=== PATIENT | female | born 1990 | race Caucasian/White ===

== ENCOUNTER 2016-06-17 07:47 | Inpatient (IN) | payer MEDICAID ==
[2016-06-17 07:50] VITALS: BMI 20.7
--- NOTE | 2016-06-17 08:00 | ED PDOC ---
HPI: Psych/Substance Abuse Time Seen by Provider: 06/17/16 07:50 History Per: Patient History/Exam Limitations: no limitations Onset/Duration Of Symptoms: Mins (prior to arrival ) Associated Symptoms: Suicidal Thoughts, Other (homicidal ideation ). denies: Suicidal Plan Additional Complaint(s): Elaine Garcia is a 25 year old female, with a previous medical history of lupus, who presents to the ED via EMS secondary to kicking the door at home and expressing suicidal and homicidal ideation towards her boyfriend. with whom she has been having problems with. Patient denies any specific plan for suicide or homicide. PMD: none provided Past Medical History Reviewed: Historical Data, Nursing Documentation, Vital Signs Vital Signs: Last Vital Signs Temp 98 F 06/17/16 07:48 Pulse 76 06/17/16 07:48 Resp BP 132/67 06/17/16 07:48 Pulse Ox 100 06/17/16 07:48 - Medical History PMH: Anxiety (as per ems report), Bipolar Disorder, Depression, Post Traumatic Stress Disorder Denies: Diabetes, Hepatitis, HIV, HTN, Chronic Kidney Disease, Seizures, Sexually Transmitted Disease Other PMH: lupus - Family History Family History: States: Unknown Family Hx - Home Medications Home Medications: Ambulatory Orders Medication Instructions Recorded ARIPiprazole [Abilify] 5 mg PO DAILY #30 tab 04/15/16 - Allergies Allergies/Adverse Reactions: Allergies Allergy/AdvReac Type Severity Reaction Status Date / Time No Known Allergies Allergy Verified 05/17/15 15:29 Review of Systems ROS Statement: Except As Marked, All Systems Reviewed And Found Negative Psych: Positive for: Suicidal ideation, Other (homicidal ideation) Physical Exam - Reviewed Nursing Documentation Reviewed: Yes Vital Signs Reviewed: Yes - Physical Exam Appears: Positive for: Well Head Exam: Positive for: ATRAUMATIC, NORMAL INSPECTION, NORMOCEPHALIC Skin: Positive for: Normal Color, Warm, DRY Eye Exam: Positive for: EOMI, Normal appearance, PERRL ENT: Positive for: Normal ENT Inspection Cardiovascular/Chest: Positive for: Regular Rate, Rhythm Respiratory: Positive for: CNT, Normal Breath Sounds Gastrointestinal/Abdominal: Positive for: Normal Exam, Bowel Sounds, Soft Neurologic/Psych: Positive for: Alert, Oriented (x 3) - Laboratory Results Result Diagrams: 06/17/16 08:26 06/17/16 08:26 - ECG O2 Sat by Pulse Oximetry: 100 (RA) Pulse Ox Interpretation: Normal Medical Decision Making Medical Decision Making: Initial Impression: Suicidal Ideation Initial Plan: * alcohol serum * labs * urine drug screen * urine dipstick * urine * 1:1 observation * reevaluation Medically stable for psychiatric admission Scribe Attestation: Documented by Csasia Mayes, acting as a scribe for Richard Flores MD. Provider Scribe Attestation: All medical record entries made by the Scribe were at my direction and personally dictated by me. I have reviewed the chart and agree that the record accurately reflects my personal performance of the history, physical exam, medical decision making, and the department course for this patient. I have also personally directed, reviewed, and agree with the discharge instructions and disposition. Disposition - Clinical Impression Clinical Impression: Depression - Patient ED Disposition Is Patient to be Admitted: Yes - Disposition Disposition Time: 09:26 Condition: FAIR - Pt Status Changed To: Hospital Disposition Of: Inpatient - Admit Certification Admit to Inpatient:: After my assessment, the patient will require hospitalization for at least two midnights. This is because of the severity of symptoms shown, intensity of services needed, and/or the medical risk in this patient being treated as an outpatient. - POA Present On Arrival: None
[2016-06-17 08:38] LABS: BASO % 0.6 % (0.0-2.0); EOS # 0.1 K/uL (0.0-0.7); EOS % 0.9 % (0.0-4.0); HEMATOCRIT 39.3 % (34.0-47.0); LYMPH # 1.3 K/uL (1.0-4.3); LYMPH % 23.2 % (20.0-40.0); MEAN CELL VOLUME 85.3 fl (81.0-99.0); MEAN CORPUSCULAR HEMOGLOBIN 27.8 pg (27.0-31.0); MEAN CORPUSCULAR HGB CONC 32.6 g/dL (33.0-37.0); MEAN PLATELET VOLUME 12.9 fl (7.2-11.7); MONO # 0.4 K/uL (0.0-0.8); MONO % 7.9 % (0.0-10.0); NEUT # 3.7 K/uL (1.8-7.0); NEUT % 67.4 % (50.0-75.0); NRBC % 0.3 % (0.0-0.0); RED CELL DISTRIBUTION WIDTH 13.9 % (11.5-14.5); WHITE BLOOD COUNT 5.5 K/uL (4.8-10.8)
[2016-06-17 08:40] LABS: ALB/GLOB RATIO 1.5 (1.0-2.1); ALCOHOL SERUM < 10 mg/dl (0-10); ALKALINE PHOSPHATASE 58 U/L (38-126); ALT/SGPT 35 U/L (9-52); AST/SGOT 25 U/L (14-36); BILIRUBIN,TOTAL 0.2 mg/dl (0.2-1.3); BLOOD UREA NITROGEN 9 mg/dl (7-17); CALCIUM 9.1 mg/dL (8.4-10.2); CARBON DIOXIDE 23 mmol/L (22-30); CHLORIDE 108 mmol/L (98-107); GFR AFRICAN-AMERICAN > 60; GLUCOSE,RANDOM 85 mg/dL (65-105); POTASSIUM 4.3 MMOL/L (3.6-5.0); SODIUM 140 mmol/l (132-148); TOTAL PROTEIN 7.3 G/DL (6.3-8.2)
[2016-06-17] MEDS ORDERED: DiphenhydrAMINE 50 mg/ml Inj IM PRN (10:56)
[2016-06-17] MEDS ORDERED: Magnesium Hydroxide Susp 30 ml UD PO PRN (10:56)
[2016-06-17] MEDS ORDERED: Alum-Mag Hydrox-Simethicone Susp (30 mL) PO PRN (10:56)
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
--- NOTE | 2016-06-17 18:57 | CP.PCM.CON ---
History of Present Illness - History of Present Illness History of Present Illness: 25 yo female with history of SLE and Bipolar DO was admitted to psyche unit because of suicidal ideation and aggressive behaviour towards her BF. Review of Systems - Review of Systems All systems: reviewed and no additional remarkable complaints except (aside from those mentioned above, 12 point system review were negative by me) Past Patient History - Infectious Disease Hx of Infectious Diseases: None - Tetanus Immunizations Tetanus Immunization: Unknown - Past Medical History & Family History Past Medical History?: Yes Past Family History: Reviewed and not pertinent - Past Social History Smoking Status: smokes weeds Chewing Tobacco Use: No Cigar Use: No Drugs: Cannabis (smokes 1 stick of weed daily, last smoke was this morning) Home Situation {Lives}: Roommate (BF) - CARDIAC Hx Cardiac Disorders: No Hx Hypertension: No - PULMONARY Hx Respiratory Disorders: No - NEUROLOGICAL Hx Neurological Disorder: No Hx Seizures: No - HEENT Hx HEENT Problems: No - RENAL Hx Chronic Kidney Disease: No - ENDOCRINE/METABOLIC Hx Systemic Lupus Erythematosus: Yes - HEMATOLOGICAL/ONCOLOGICAL Hx Blood Disorders: Yes Hx Human Immunodeficiency Virus (HIV): No Other/Comment: thrombocytopenia - INTEGUMENTARY Hx Dermatological Problems: No - MUSCULOSKELETAL/RHEUMATOLOGICAL Hx Musculoskeletal Disorders: No - GASTROINTESTINAL Hx Gastrointestinal Disorders: No - GENITOURINARY/GYNECOLOGICAL Hx Genitourinary Disorders: No Hx Sexually Transmitted Disorders: No - PSYCHIATRIC Hx Bipolar Disorder: Yes Hx Depression: Yes Hx Substance Use: Yes - SURGICAL HISTORY Hx Surgeries: No - ANESTHESIA Hx Anesthesia: No Meds Allergies/Adverse Reactions: Allergies Allergy/AdvReac Type Severity Reaction Status Date / Time No Known Allergies Allergy Verified 05/17/15 15:29 - Medications Medications: Current Medications Acetaminophen (Tylenol 325mg Tab) 650 mg PO Q4 PRN PRN Reason: Pain, moderate (4-7) Al Hydrox/Mg Hydrox/Simethicone (Maalox Plus 30 Ml) 30 ml PO Q4 PRN PRN Reason: Dyspepsia Aripiprazole (Abilify) 5 mg PO DAILY GUS Last Admin: 06/17/16 11:26 Dose: 5 mg Diphenhydramine HCl (Benadryl) 50 mg IM Q6 PRN PRN Reason: Extrapyramidal S/S Unable PO Diphenhydramine HCl (Benadryl) 50 mg PO Q6 PRN PRN Reason: Extrapyramidal Symptoms Haloperidol (Haldol) 5 mg PO Q4 PRN PRN Reason: Agitation Haloperidol Lactate (Haldol) 5 mg IM Q4 PRN PRN Reason: Agitation, Unable to Take PO Lorazepam (Ativan) 2 mg IM Q4 PRN PRN Reason: Anxiety/Agitation,Unable PO Lorazepam (Ativan) 2 mg PO Q4 PRN PRN Reason: Anxiety/Agitation Magnesium Hydroxide (Milk Of Magnesia) 30 ml PO HS PRN PRN Reason: Constipation Physical Exam - Constitutional Appears: No Acute Distress - Head Exam Head Exam: ATRAUMATIC - Eye Exam Eye Exam: absent: Scleral icterus - ENT Exam ENT Exam: Mucous Membranes Moist - Neck Exam Neck exam: Negative for: Meningismus - Respiratory Exam Respiratory Exam: absent: Rhonchi, Wheezes, Respiratory Distress - Cardiovascular Exam Cardiovascular Exam: REGULAR RHYTHM, +S1, +S2 - GI/Abdominal Exam GI & Abdominal Exam: Soft. absent: Tenderness - Rectal Exam Rectal Exam: Deferred - Extremities Exam Extremities exam: Negative for: pedal edema - Neurological Exam Neurological exam: Alert, Oriented x3 - Psychiatric Exam Psychiatric exam: Normal Affect - Skin Skin Exam: Dry, Intact Results - Vital Signs Recent Vital Signs: Last Vital Signs Temp 97.7 F 06/17/16 16:47 Pulse 68 06/17/16 16:47 Resp 18 06/17/16 16:47 BP 108/61 06/17/16 16:47 Pulse Ox 100 06/17/16 10:11 - Labs Result Diagrams: 06/17/16 08:26 06/17/16 08:26 Assessment & Plan (1) Depression Status: Acute Comment: psyche is managing (2) SLE (systemic lupus erythematosus) Status: Acute (3) Idiopathic thrombocytopenia Status: Chronic Comment: no active bleeding or bruising
[2016-06-18 08:51] LABS: T4 8.06 ug/dl (5.5-11.0)
[2016-06-18 09:05] LABS: THYROID STIMULATING HORMONE 1.46 mIU/ML (0.46-4.68)
--- NOTE | 2016-06-18 10:01 | PCM.PYCHPN ---
Psychiatric Progress Note - Psychiatric Progress Note Patient seen today, length of contact: Patient evaluated, case discussed with staff, chart reviewed Patient Chief Complaint: "I'm so upset" Problems Identified/Issues Discussed: Patient was lying in bed under the covers, unwilling to get out of bed to engage in conversation with the real estate underwriter. She reports that she continues to feel depressed, but denied SI/HI. No acute psychotic symptoms or paranoia. She reports that she has been crying a lot and had a large pile of used tissues next to her bed. She was encouraged to get out of bed and engage with staff and peers. No adverse effects to Abilify reported. Medication Change: No Medical Record Reviewed: Yes Mental Status Examination - Cognitive Function Orientation: Person, Place, Situation, Time Memory: Intact Attention: WNL Concentration: WNL Association: WNL Fund of Knowledge: [facility] Decription of patient's judgement and insights: Fair I/J - Mood Mood: Depressed, Anxious - Affect Affect: Other (Tearful, labile) - Speech Speech: Soft - Formal Thought Process Formal Thought Process: No Impairment Psychotic Thoughts and Behaviors: No AH/VH/paranoia/delusions - Suicidal Ideation Suicidal Ideation: No - Homicidal Ideation Homicidal Ideation: No Goal/Treatment Plan - Goal/Treatment Plan Need for Continued Stay: Remain at risks for inpatient hospitalization, Severe depression anxiety Progress Toward Problem(s) and Goals/Treatment Plan: 25 yo female w/ h/o Bipolar II disorder and borderline personality disorder, continues to be labile and depressed, but denies current suicidal or homicidal ideation. Patient needs continued inpatient hospitalization for treatment and stabilization. -Continue Abilify 5 mg PO Daily -Medicine consult appreciated -No 1:1 needed as the patient can contract for safety -Individual and group therapy Estimated Date of D/C: 06/22/16
[2016-06-18 18:03] VITALS: RESP 18; O2SAT 99
--- NOTE | 2016-06-19 11:14 | PCM.PYCHPN ---
Psychiatric Progress Note - Psychiatric Progress Note Patient seen today, length of contact: Patient evaluated, case discussed with staff, chart reviewed Patient Chief Complaint: "I'm so upset" Problems Identified/Issues Discussed: Patient was out of bed, took a shower earlier, so she has improved hygiene. She was very tearful on interview, stating she wants to leave the hospital in order to break up with her boyfriend and move. She was informed that she can sign a 48 hour letter requesting discharge. She was not agreeable to increasing the Abilify at this time. No SI/HI. No acute psychotic symptoms or paranoia. Medication Change: No Medical Record Reviewed: Yes Mental Status Examination - Cognitive Function Orientation: Person, Place, Situation, Time Memory: Intact Attention: WNL Concentration: WNL Association: WNL Fund of Knowledge: [facility] Decription of patient's judgement and insights: Fair I/J - Mood Mood: Depressed, Anxious - Affect Affect: Other (Tearful, labile) - Speech Speech: Soft - Formal Thought Process Formal Thought Process: No Impairment Psychotic Thoughts and Behaviors: No AH/VH/paranoia/delusions - Suicidal Ideation Suicidal Ideation: No - Homicidal Ideation Homicidal Ideation: No Goal/Treatment Plan - Goal/Treatment Plan Need for Continued Stay: Remain at risks for inpatient hospitalization, Severe depression anxiety Progress Toward Problem(s) and Goals/Treatment Plan: 25 yo female w/ h/o Bipolar II disorder and borderline personality disorder, continues to be labile and tearful, but denies current suicidal or homicidal ideation. -Continue Abilify 5 mg PO Daily -Medicine consult appreciated -No 1:1 needed as the patient can contract for safety -Individual and group therapy Estimated Date of D/C: 06/22/16
[2016-06-20 09:36] VITALS: BP 120/75; PULSE 82; TEMP 96
--- NOTE | 2016-06-20 12:21 | PCM.PYCHDC ---
Mental Status Examination - Mental Status Examination Orientation: Person, Place, Situation, Time Memory: Intact Mood: Neutral Affect: Broad Speech: Appropriate Attention: WNL Concentration: WNL Association: WNL Fund of Knowledge: WNL Formal Thought Process: No Impairment Description of patient's judgement and insight: good insight and judgment Psychotic Thoughts and Behaviors: denies any a/v hallucinations Suicidal Ideation: No Current Homicidal Ideation?: No Plan: pt denies any suicidal or homicidal thoughts/plans Discharge Summary - Discharge Note Reason for Hospitalization: pt was anxious, stating she had suicidal thoughts Psychiatric History (includes Medical, Family, Personal Hx): history of borderline personality disorder, prior hospitalizations Laboratory Data: Abnormal Lab Results 06/18/16 06:00 Hemoglobin A1c 5.0 Consultations:: List each consultation separately and include: 1. Reason for request. 2. Findings. 3. Follow-up Consultations: seen by the hospitalist Summary of Hospital Course include:: 1. Description of specific treatment plan utilized for patients during their course of treatmen. 2. Summarize the time- course for resolution of acute symptoms and/or regressed behaviors. 3. Describe issues identified and worked on during hospitalization. 4. Describe medication utilized. 5. Describe medical problems identified and treated. 6. Reassessment of suicide risk Summary of Hospital Course: pt was admitted to [facility] and oriented to the unit. pt placed on routine safety protocols. pt started on her previous medicaiton- abilify. she participated in treatment. she reported she was no longer having suicidal thoughts. she was agreeing to follow up with aftercare at the mental health clinic. at time of discharge she was goal directed and future oriented. - Final Diagnosis (DSM 5) Condition upon Discharge: FAIR DSM 5: mood disorder unspecified, borderline personality disorder Disposition: HOME/ ROUTINE Prescriptions/Medication Reconciliation: ARIPiprazole [Abilify] 5 mg PO DAILY #30 tab - Smoking Cessation Smoking Cessation Medication prescribed: No Reason for not providing: declines - Antipsychotic Medications Pt discharged on 2 or more routine antipsychotic medications: Yes
== END 2016-06-20 17:35 | disposition home or self-care (01) | DRG 430 ==
LOC: H.ER 07:47 → SUPCPDRO 07:47 → H.ERHOLD 09:27 → H.PSYCH 10:36
PROVIDERS: ADMIT Psychiatry & Neurology Psychiatry; ATTEND Psychiatry & Neurology Psychiatry
PROC: GZHZZZZ Group Psychotherapy (ICD-10-PCS; principal; 2016-06-17)
PROC: GZ58ZZZ Individual Psychotherapy, Cognitive-Behavioral (ICD-10-PCS; 2016-06-17)
DX: F31.81 Bipolar II disorder (principal); D69.3 Immune thrombocytopenic purpura; M32.9 Systemic lupus erythematosus, unspecified; R45.851 Suicidal ideations; Z91.19 Patient's noncompliance with other medical treatment and regimen; F60.3 Borderline personality disorder; F43.10 Post-traumatic stress disorder, unspecified; F12.90 Cannabis use, unspecified, uncomplicated; Z91.410 Personal history of adult physical and sexual abuse; Z81.8 Family history of other mental and behavioral disorders

== ENCOUNTER 2016-07-20 10:06 | Emergency (ER) | payer MEDICAID ==
[2016-07-20 10:06] VITALS: BMI 20.7
[2016-07-20 10:09] VITALS: BP 119/72; PULSE 70; RESP 18; TEMP 98.5; O2SAT 100
--- NOTE | 2016-07-20 11:04 | ED PDOC ---
HPI: Psych/Substance Abuse Time Seen by Provider: 07/20/16 10:15 Chief Complaint (Nursing): Psychiatric Evaluation Chief Complaint (Provider): Psychiatric Evaluation History Per: Patient, EMS Modifying Factor(s): None Additional Complaint(s): Lexis Garcia is a 25 year old female with a history of bipolar disorder, schizoaffective disorder, and lupus that was brought to the ED via EMS after the patient's friend called for concern re patients safety. Patient reports that she was feeling sad, and has multiple superficial left forearm cuts, which were done with a needle. She currently denies any SI/HI and states feels better. Past Medical History Reviewed: Historical Data, Nursing Documentation, Vital Signs Vital Signs: Last Vital Signs Temp 98.5 F 07/20/16 10:08 Pulse 70 07/20/16 10:08 Resp 18 07/20/16 10:08 BP 119/72 07/20/16 10:08 Pulse Ox 100 07/20/16 10:08 - Medical History PMH: Anxiety (as per ems report), Bipolar Disorder, Depression, Post Traumatic Stress Disorder, Schizophrenia Denies: Diabetes, Hepatitis, HIV, HTN, Chronic Kidney Disease, Seizures, Sexually Transmitted Disease Other PMH: Lupus - Surgical History Surgical History: No Surg Hx - Family History Family History: States: Unknown Family Hx - Social History Current smoker - smoking cessation education provided: No Alcohol: None Drugs: Denies - Home Medications Home Medications: Ambulatory Orders Medication Instructions Recorded ARIPiprazole [Abilify] 5 mg PO DAILY #30 tab 06/20/16 - Allergies Allergies/Adverse Reactions: Allergies Allergy/AdvReac Type Severity Reaction Status Date / Time No Known Allergies Allergy Verified 07/20/16 10:31 Review of Systems Musculoskeletal: Positive for: Arm Pain (multiple superficial cuts on left forearm) Psych: Negative for: Suicidal ideation (no current SI/HI) Physical Exam - Reviewed Nursing Documentation Reviewed: Yes Vital Signs Reviewed: Yes - Physical Exam Appears: Positive for: Non-toxic, No Acute Distress Head Exam: Positive for: ATRAUMATIC, NORMOCEPHALIC Skin: Positive for: Normal Color, Warm Cardiovascular/Chest: Positive for: Regular Rate, Rhythm. Negative for: Murmur Respiratory: Positive for: Normal Breath Sounds. Negative for: Wheezing Gastrointestinal/Abdominal: Positive for: Normal Exam Extremity: Positive for: Other (Abrasions on left forearm no active bleeding or noted cellulitis. neurovascular intact) Neurologic/Psych: Positive for: Alert, Oriented. Negative for: Motor/Sensory Deficits - Laboratory Results Result Diagrams: 07/20/16 11:10 07/20/16 11:10 - ECG O2 Sat by Pulse Oximetry: 100 (RA) Pulse Ox Interpretation: Normal Medical Decision Making Medical Decision Making: Impression: Psychiatric Evaluation Plan: * CMP * CBC * Acetaminophen * Alcohol * Salicylate * Urinalysis * Urine Drug Screen * Crisis Evaluation * Reevaluation 13:48 Patient is medically cleared for discharge after being seen by health worker, plan as per psychiatrist Dr. Mullen. Arranged outpt f/u at clinic. gave pt appt. Clinical Impression: Bipolar Disorder Scribe Attestation: Documented by Shreya Zhao, acting as a scribe for Shruti Mcclain MD. Provider Scribe Attestation: All medical record entries made by the Scribe were at my direction and personally dictated by me. I have reviewed the chart and agree that the record accurately reflects my personal performance of the history, physical exam, medical decision making, and the department course for this patient. I have also personally directed, reviewed, and agree with the discharge instructions and disposition. Disposition - Clinical Impression Clinical Impression: Bipolar disorder - Patient ED Disposition Is Patient to be Admitted: No Counseled Patient/Family Regarding: Diagnosis, Need For Followup - Disposition Disposition: Routine/Home Disposition Time: 12:40 Condition: STABLE Additional Instructions: follow up in mental health clinic as instructed return to the ED with any worsening or concerning symptoms. Instructions: Bipolar Disorder (ED)
[2016-07-20 11:18] LABS: BASO % 0.5 % (0.0-2.0); EOS % 0.7 % (0.0-4.0); HEMATOCRIT 42.6 % (34.0-47.0); LYMPH # 1.2 K/uL (1.0-4.3); LYMPH % 22.7 % (20.0-40.0); MEAN CELL VOLUME 84.3 fl (81.0-99.0); MEAN CORPUSCULAR HGB CONC 32.1 g/dL (33.0-37.0); MEAN PLATELET VOLUME 11.8 fl (7.2-11.7); MONO # 0.4 K/uL (0.0-0.8); MONO % 7.2 % (0.0-10.0); NEUT # 3.8 K/uL (1.8-7.0); NEUT % 68.9 % (50.0-75.0); NRBC % 0.1 % (0.0-0.0); RED CELL DISTRIBUTION WIDTH 13.8 % (11.5-14.5); WHITE BLOOD COUNT 5.5 K/uL (4.8-10.8)
[2016-07-20 11:22] LABS: URINE BACTERIA RARE (<OCC); URINE BILIRUBIN NEGATIVE (NEGATIVE); URINE BLOOD NEGATIVE (NEGATIVE); URINE COLOR YELLOW (YELLOW); URINE GLUCOSE (UA) NEG (Normal); URINE KETONE NEGATIVE (NEGATIVE); URINE LEUKOCYTE ESTERASE NEG Leu/uL (Negative); URINE PROTEIN NEGATIVE (NEGATIVE); URINE UROBILINOGEN 0.2-1.0 mg/dL (0.2-1.0); WBC URINE 1 /hpf (0-5)
[2016-07-20 11:23] LABS: RBC URINE 3 /hpf (0-3)
[2016-07-20 11:29] LABS: ALB/GLOB RATIO 1.3 (1.0-2.1); ALCOHOL SERUM < 10 mg/dl (0-10); ALKALINE PHOSPHATASE 59 U/L (38-126); ALT/SGPT 26 U/L (9-52); AST/SGOT 19 U/L (14-36); BILIRUBIN,TOTAL 0.4 mg/dl (0.2-1.3); BLOOD UREA NITROGEN 10 mg/dl (7-17); CALCIUM 9.1 mg/dL (8.4-10.2); CARBON DIOXIDE 23 mmol/L (22-30); CHLORIDE 108 mmol/L (98-107); GFR AFRICAN-AMERICAN > 60; GLUCOSE,RANDOM 75 mg/dL (65-105); POTASSIUM 3.9 MMOL/L (3.6-5.0); SODIUM 142 mmol/l (132-148); TOTAL PROTEIN 8.2 G/DL (6.3-8.2)
== END 2016-07-20 14:34 | disposition home or self-care (01) ==
LOC: H.ER 10:06
DX: F31.9 Bipolar disorder, unspecified (principal); M32.9 Systemic lupus erythematosus, unspecified; F20.9 Schizophrenia, unspecified

== ENCOUNTER 2018-03-11 14:55 | Emergency (ER) | payer MEDICARE, MEDICAID ==
[2018-03-11 14:55] VITALS: BMI 20.7
[2018-03-11 15:03] VITALS: RESP 18
--- NOTE | 2018-03-11 15:44 | ED PDOC ---
HPI: Psych/Substance Abuse Time Seen by Provider: 03/11/18 15:07 Chief Complaint (Nursing): Psychiatric Evaluation Chief Complaint (Provider): Psychiatric Evalaution History Per: Patient, EMS, Other (police) History/Exam Limitations: no limitations Suicide/Self Injury Attempted (Context): None Severity: Moderate Associated Symptoms: Suicidal Thoughts Additional Complaint(s): 27 year old female with a past medical history of lupus, anxiety, depression, borderline personality disorder, and scizoeffective disorder is brought into the ED by police for a psychiatric evaluation. Police were called by patient's coworkers as they were concerned about an update she posted to her facebook where she stated that she was suicidal and was taking pills. Patient admits to posting the update, as it helps her cope, and taking 2.0 mg of ativan today. Patient was prescribed 5x doses of 0.5 mg ativan by [facility] after her most recent admission for 5x days last month for schizoeffective disorder after experiencing a panic attack due to concern of her family at home in [place]. Patient states that she is has had 1-2x psychiatric admissions to hospitals annually for the past 9x years. As per police and EMS patient stated she would commit suicide when she was discharged form the ED. Patient states that the trauma of getting her blood drawn "forcibly" (as from previous hospital admissions) and being overmedicated would make her want to commit suicide if she was discharged. Patient denies taking any medications due to insurance issues, but states that she has a prescription for abilify. PMD: None provided. Past Medical History Reviewed: Historical Data, Nursing Documentation, Vital Signs Vital Signs: Last Vital Signs Temp 98.5 F 03/11/18 14:58 Pulse 88 03/11/18 14:58 Resp 18 03/11/18 14:58 BP 138/70 03/11/18 14:58 Pulse Ox 99 03/11/18 14:58 LILLIAN Report Viewed: Yes - Medical History PMH: Anxiety (as per ems report), Bipolar Disorder, Depression, Post Traumatic Stress Disorder, Schizophrenia Denies: Diabetes, Hepatitis, HIV, HTN, Chronic Kidney Disease, Seizures, Sexually Transmitted Disease Other PMH: lupus - Family History Family History: States: No Known Family Hx - Social History Drugs: Cannabis, Prescription medications (ativan 2 mg today) - Immunization History Hx Tetanus Toxoid Vaccination: No Hx Influenza Vaccination: No Hx Pneumococcal Vaccination: No - Home Medications Home Medications: Ambulatory Orders Medication Instructions Recorded ARIPiprazole [Abilify] 5 mg PO DAILY #30 tab 06/20/16 Buspirone HCl 15 mg PO 05/07/17 QUEtiapine [SEROquel] 50 mg PO 05/07/17 ARIPiprazole [Abilify] 5 mg PO HS #30 tab 05/11/17 QUEtiapine [SEROquel] 50 mg PO HS #30 tab 05/11/17 - Allergies Allergies/Adverse Reactions: Allergies Allergy/AdvReac Type Severity Reaction Status Date / Time No Known Allergies Allergy Verified 03/11/18 15:03 Review of Systems ROS Statement: Except As Marked, All Systems Reviewed And Found Negative Psych: Positive for: Suicidal ideation Physical Exam - Reviewed Nursing Documentation Reviewed: Yes Vital Signs Reviewed: Yes - Physical Exam Appears: Positive for: Well, Non-toxic, No Acute Distress Head Exam: Positive for: ATRAUMATIC, NORMOCEPHALIC Skin: Positive for: Normal Color, Warm, Dry. Negative for: Diaphoresis, Pallor, Rash Eye Exam: Positive for: Normal appearance Neck: Positive for: Normal, Painless ROM, Supple. Negative for: Decreased ROM Cardiovascular/Chest: Positive for: Regular Rate, Rhythm Respiratory: Positive for: Normal Breath Sounds Neurologic/Psych: Positive for: Alert, Oriented (3x) - ECG O2 Sat by Pulse Oximetry: 99 (RA) Pulse Ox Interpretation: Normal Medical Decision Making Medical Decision Makin:07 Initial impression: 27 year old female in the ED for a psychiatric evaluation Initial plan: * crisis evaluation * CMP * drug screen urinary * upreg * CBC with diff * urinalysis * reevaluation Scribe Attestation: Documented Arun Grace, acting as a scribe for Hasmukh Rivas PA-C. Provider Scribe Attestation: All medical record entries made by the Scribe were at my direction and personally dictated by me. I have reviewed the chart and agree that the record accurately reflects my personal performance of the history, physical exam, medical decision making, and the department course for this patient. I have also personally directed, reviewed, and agree with the discharge instructions and disposition. Disposition - Clinical Impression Clinical Impression: Borderline personality disorder, Bipolar disorder - Patient ED Disposition Is Patient to be Admitted: No Discussed With Dr.: Jannie Lopez Doctor Will See Patient In The: Office Counseled Patient/Family Regarding: Studies Performed, Diagnosis, Need For Followup - Disposition Disposition: Routine/Home Disposition Time: 16:36 Condition: STABLE Additional Instructions: FOR IMMEDIATE OUTPATIENT MENTAL HEALTH SERVICES FOLLOW UP [facility] [address] [place] [address] MONDAY-MONDAY: 9AM-8PM MONDAY-MONDAY: 10AM-6PM I ALSO FOLLOWED UP WITH [facility] ICMS PROGRAM AND THE DIRECTOR, RUDY, WILL BE CALLING YOU FIRST THING IN THE MORNING TO F/U WITH WHO CALLED YOU AND WHY THEY DID NOT COME TO YOUR RESIDENCE; WHEREAS YOU WERE APPROVED FOR ICMS SERVICES. Instructions: Bipolar Disorder, Borderline Personality Disorder, Bipolar Disorder (DC) Forms: [employer] (Georgian)
[2018-03-11 16:50] VITALS: BP 122/75; PULSE 80; TEMP 98.2; O2SAT 100
== END 2018-03-11 16:40 | disposition home or self-care (01) ==
LOC: H.ER 14:55
DX: F60.3 Borderline personality disorder (principal); F31.9 Bipolar disorder, unspecified; Z00.8 Encounter for other general examination; M32.9 Systemic lupus erythematosus, unspecified; F43.10 Post-traumatic stress disorder, unspecified; Z86.59 Personal history of other mental and behavioral disorders